=== PATIENT | female | born 1985 | race Caucasian/White ===

== ENCOUNTER 2017-04-28 08:29 | Emergency (ER) | payer OTHER ==
--- NOTE | 2017-04-28 09:36 | PD ---
HPI Chief Complaint Contractions Date Seen: Apr 28, 2017 Travel History International Travel<30 Days: No Contact w/Intl Traveler<30Days: No Known Affected Area: No History of Present Illness HPI Patient is 31-year-old white female at 39 weeks who presents planning of contractions that are uncomfortable and getting more uncomfortable but they are tolerable, denies bleeding or leakage of fluid. Heart rate is reactive and contractions are noted on the monitor every 3-4 minutes patient states that she is this all started about 1:00 in the morning and has increased since then. Patient sees Dr. Jeff for care Para: 0 : 1 History Social History Alcohol Use: No Tobacco Use: No Substance Abuse: No Review of Systems General / Constitutional: No: Fever, Weight Gain, Chills, Other Eyes: No: Diploplia, Blurred Vision, Visual changes, Pain, Photophobia HENT: No: Headaches, Vertigo, Lightheadedness Cardiovascular: No: Irregular Rhythm, Chest Pain or Discomfort, Palpitations, Tachycardia, Syncope, Varicosities, Edema, Cyanosis Respiratory: No: Cough, Short of Breath, Other Gastrointestinal: Abdominal Pain, No: Nausea, Vomiting, Diarrhea Genitourinary: No: Decreased Urinary Output, Oliguria Musculoskeletal: No: Limited ROM, Weakness, Cramping, Edema, Pain Skin: No Rash, No Itching, No Dryness, No Lumps, No Change in Pigmentation, No Change in Nails, No Alopecia, No Lesions Neurologic: No: Weakness, Dizziness, Syncope, Focal Abnormalities, Coordination Problem, Headache, Slurred Speech, Seizures Psychiatric: No: Depression, Suicidal Ideations, Homicidal Ideation Endocrine: No: Heat Intolerance, Cold Intolerance, Polydipsia, Polyuria, Other Physical Exam Narrative GENERAL: Well-nourished, well-developed patient. SKIN: Warm and dry. HEAD: Normocephalic and atraumatic. EYES: No scleral icterus. No injection or drainage. ENT: No nasal drainage noted. Mucous membranes pink. Airway patent. NECK: Supple, trachea midline. No JVD. CARDIOVASCULAR: Regular rate and rhythm without murmurs, gallops, or rubs. RESPIRATORY: Breath sounds equal bilaterally. No accessory muscle use. BREASTS: Bilateral exam showed no masses , no retractions, no nipple discharge. ABDOMEN/GI: Abdomen soft, non-tender, bowel sounds present, no rebound, no guarding Gravid to [39-] weeks size Fundal Height: [38-] GENITOURINARY: External Genitalia: intact and normal in appearance BUS glands: [-] Cervix: [-] Dilatation: [0-] Effacement: [-50] Station: [-3] Presentation: [vtx-] Membranes: [intact ] Uterine Contractions: [q 4 min-] FHT's: Category: [1-] Baseline: [-144] Reactive: [yes-] Variability: [-mod] Decels: [0-] EXTREMITIES: No cyanosis or edema. BACK: Nontender without obvious deformity. No CVA tenderness. NEUROLOGICAL: Awake and alert. Motor and sensory grossly within normal limits. Five out of 5 muscle strength in all muscle groups. Normal speech. MDM Interpretation(s) Patient 31-year-old white female at 39 weeks who presents with contractions but is not dilated at this time, heart rate tracing is reactive and she is giovanna with her not very uncomfortable just somewhat uncomfortable. Membranes are intact heart rate tracing is reactive Plan Plan to discharge home for her to return in contraction strength is increased or for membranes rupture which is bleeding. Otherwise she is followed with her OB provider this week. Diagnosis Diagnosis: Primary Impression: False labor after 37 weeks of gestation without delivery Disposition: 01 DISCHARGE HOME Condition: Stable Maulik Edward II, MD Apr 28, 2017 09:36
[2017-04-28] MEDS ORDERED: PREN29TA PO (23:44)
== END 2017-04-28 09:44 | disposition home or self-care (01) ==
LOC: HOBED 08:29
DX: O47.1 False labor at or after 37 completed weeks of gestation (principal); Z3A.39 39 weeks gestation of pregnancy
CPT/HCPCS: 99282

== ENCOUNTER 2017-04-28 22:53 | Inpatient (IN) | payer OTHER ==
[~2017-04-28] VITALS: Ht 167.6 cm; Wt 73.0 kg
[2017-04-28] MEDS ORDERED: LIDOCAINE HCL 1% 50 ML VIAL I-DERMAL PRN (23:30)
[2017-04-28] MEDS ORDERED: OXYTOCIN 30 UNITS-500ML PREMIX 500 ML IV ONE (23:30)
[2017-04-28] MEDS ORDERED: ONDANSETRON HCL 4 MG/2 ML VIAL IV PRN (23:30)
[2017-04-28] MEDS ORDERED: CITRIC ACID-SODIUM CITRATE LIQ 30 ML UDC PO SCH (23:30)
[2017-04-28] MEDS ORDERED: MINERAL OIL 10 ML VIAL TOPICAL PRN (23:30)
[2017-04-28] MEDS ORDERED: LIDOCAINE HCL 1% 50 ML VIAL INFIL PRN (23:30)
[2017-04-28] MEDS ORDERED: LACTATED RINGER'S 1000 ML INJ 1,000 ML IV PRN (23:30)
[2017-04-28] MEDS ORDERED: SODIUM CHLORID 0.9% 500 ML INJ 500 ML IV PRN (23:30)
--- NOTE | 2017-04-28 23:30 | PD ---
HPI Chief Complaint Contractions with rupture membranes Date Seen: Apr 28, 2017 Time Seen: 23:26 Travel History International Travel<30 Days: No Contact w/Intl Traveler<30Days: No Known Affected Area: No History of Present Illness HPI 31-year-old female at 39 weeks and 2 days complains of contractions. Patient was here early this morning with contractions and her cervix was closed and she was sent home. Patient notes sudden gush of fluid at 10:30 this evening accompanied by a yellowish green amniotic fluid per vagina. Since rupture membranes patient has had an increase in the intensity of the contractions which are now occurring every 4-5 minutes. She's had uncomplicated antepartum course and is group B strep negative Para: 0 : 1 History Past Medical History Medical History: Denies Significant Hx Past Surgical History Surgical History: No Previous Surgery Family History Family History: Negative Social History Alcohol Use: No Tobacco Use: No Substance Abuse: No Review of Systems Except as stated in HPI: all other systems reviewed are Neg Physical Exam Narrative GENERAL: Well-nourished, well-developed patient. SKIN: Warm and dry. HEAD: Normocephalic and atraumatic. EYES: No scleral icterus. No injection or drainage. ENT: No nasal drainage noted. Mucous membranes pink. Airway patent. NECK: Supple, trachea midline. No JVD. CARDIOVASCULAR: Regular rate and rhythm without murmurs, gallops, or rubs. RESPIRATORY: Breath sounds equal bilaterally. No accessory muscle use. ABDOMEN/GI: Abdomen soft, non-tender, bowel sounds present, no rebound, no guarding Gravid to [-39] weeks size Fundal Height: [-] GENITOURINARY: External Genitalia: intact and normal in appearance BUS glands: [-Normal] Cervix: [-Mid position] Dilatation: [Closed-] Effacement: [-50] Station: [--3] Presentation: [-Vertex] Membranes: [ruptured] light meconium Uterine Contractions: [-Every 5 minutes] FHT's: Category: [1-] Baseline: [150-] Reactive: [-Moderate] Variability: [-Moderate] Decels: [Absent-] EXTREMITIES: No cyanosis or edema. BACK: Nontender without obvious deformity. No CVA tenderness. NEUROLOGICAL: Awake and alert. Motor and sensory grossly within normal limits. Five out of 5 muscle strength in all muscle groups. Normal speech. Data Data Vital Signs Reviewed: Yes MDM Plan 31-year-old at 39 weeks 2 days with spontaneous rupture membranes and consistent contractions Patient will be admitted to the labor floor, she desires an epidural for pain relief Group B strep is negative Light meconium is noted in the amniotic fluid Diagnosis Diagnosis: Primary Impression: Meconium stained amniotic fluid, delivered, current hospitalization Additional Impressions: Ruptured, membranes, premature Rupture of membranes with meconium present Spontaneous onset of labor after 37 but before 39 completed weeks gestation with delivery by planned section, delivered with mention of complication 39 weeks gestation of Maria Isabel Christianson MD Apr 28, 2017 23:30
[2017-04-28] MEDS ORDERED: PREN29TA PO (23:44)
[2017-04-28 23:49] VITALS: BP 125/63; PULSE 82
[2017-04-28] MEDS ORDERED: SODIUM CHLOR 0.9% 1000 ML INJ 1,000 ML IV PRN (23:50)
[2017-04-28] MEDS: LACTATED RINGER'S 1000 ML INJ 1,000 ML IV SCH (23:58)
[2017-04-29] VITALS (105 sets, daily range): BP systolic 86–153; BP diastolic 43–109; PULSE 68–126; RESP 16–18; TEMP 97.8–99.2; O2SAT 99–100
[2017-04-29 00:24] LABS: AUTOMATED NEUTROPHIL # 8.2 TH/MM3 (1.8-7.7); BASOPHIL % 0.2 % (0.0-2.0); EOSINOPHIL % 0.3 % (0.0-4.0); HEMATOCRIT 38.2 % (35.0-46.0); HEMO FLAGS DIFF FINAL; LYMPH % 25.6 % (9.0-44.0); LYMPHOCYTE # 3.1 TH/MM3 (1.0-4.8); MEAN CELL VOLUME 92.9 FL (80.0-100.0); MEAN CORPUSCULAR HEMOGLOBIN 32.5 PG (27.0-34.0); MEAN CORPUSCULAR HGB CONC 34.9 % (32.0-36.0); MONO % 6.7 % (0.0-8.0); NEUT % 67.2 % (16.0-70.0); PLATELET COUNT 196 TH/MM3 (150-450); RED BLOOD COUNT 4.11 MIL/MM3 (4.00-5.30); RED CELL DISTRIBUTION WIDTH 13.2 % (11.6-17.2); WHITE BLOOD COUNT 12.2 TH/MM3 (4.0-11.0)
[2017-04-29 00:30] LABS: BLOOD, URINE MOD (NEG); COMMENT (UR) CULT NOT INDICATED; CULTURE IF INDICATED CULT NOT INDICATED; GLUCOSE,URINE NEG (NEG); KETONE, URINE 10 mg/dL (NEG); MUCUS URINE FEW /lpf (OCC); NITRITE,URINE NEG (NEG); SQUAMOUS EPITHELIAL CELL URINE 1 /hpf (0-5); URINE COLOR YELLOW (YELLW/STRAW)
[2017-04-29] MEDS: LACTATED RINGER'S 1000 ML INJ 1,000 ML IV SCH ×3 (01:23→15:07)
[2017-04-29] MEDS ORDERED: fentaNYL 2MCG-BUPIV 0.125% INJ 100 ML ONE (03:09)
[2017-04-29] MEDS ORDERED: NO SYSTEM NARCOTICS PRN (03:45)
[2017-04-29] MEDS ORDERED: fentaNYL 2MCG-BUPIV 0.125% 100 ML EPIDURAL SCH (03:45)
[2017-04-29] MEDS ORDERED: DO NOT ADMINISTER ANTICOAGULANTS PRN (03:45)
[2017-04-29] MEDS ORDERED: ePHEDrine/NS 25 MG/5 ML SYR IV PRN (03:45)
[2017-04-29] MEDS ORDERED: OXYTOCIN 30 UNITS-500ML PREMIX 500 ML ONE (08:14)
[2017-04-29] MEDS ORDERED: ACETAMINOPHEN 500 MG CPLT PO ONE (15:00)
[2017-04-29] MEDS ORDERED: DIPHTH/TETANUS/ACEL PERTUSSIS (BOOSTER) 0.5 ML VIAL/PFS IM ONE (16:00)
[2017-04-29] MEDS ORDERED: MEASLES, MUMPS, RUBELLA VACCINE 0.5 ML VIAL SQ ONE (16:00)
--- NOTE | 2017-04-29 20:58 | PD.OB.DELI ---
Delivery Date: Apr 29, 2017 Anesthesia: Epidural Episiotomy: Midline Vaginal Delivery: Normal Presentation: Occiput anterior Nuchal Cord: None Delayed cord clamping (45 sec): No : Female, Single One Minute : 8 Five Minute : 9 Weight: 7-14 Placenta: Spontaneous delivery, Intact, 3 vessel cord Laceration: Episiotomy, 2 deg Repair: Chromic interrupted, Chromic running Rubi Borden MD Apr 29, 2017 20:58
[2017-04-29] MEDS ORDERED: SODIUM CHLORIDE 0.9% FLUSH 10 ML FLUSH IV FLUSH PRN (21:00)
[2017-04-29] MEDS ORDERED: ZOLPIDEM TARTRATE 5 MG TAB PO PRN (21:00)
[2017-04-29] MEDS ORDERED: BENZOCAINE 20% TOPICAL SPRAY 60 ML CAN TOPICAL PRN (21:00)
[2017-04-29] MEDS ORDERED: DOCUSATE SODIUM 50 MG/SENNA 8.6 MG TAB PO PRN (21:00)
[2017-04-29] MEDS ORDERED: oxyCODONE/ACETAMINOPHEN 5 MG/325 MG TAB PO PRN ×2 (21:00)
[2017-04-29] MEDS ORDERED: ONDANSETRON ODT 4 MG TAB PO PRN (21:00)
[2017-04-29] MEDS ORDERED: WITCH HAZEL 50%/GLYCERIN 12.5% 40 PAD JAR TOPICAL PRN (21:00)
[2017-04-29] MEDS ORDERED: ALUMINUM/MAGNESIUM/SIMETH 30 ML CUP PO PRN (21:00)
[2017-04-29] MEDS ORDERED: SODIUM CHLORIDE 0.9% FLUSH 10 ML FLUSH IV FLUSH SCH (21:00)
[2017-04-30] MEDS: IBUPROFEN 600 MG TAB PO PRN ×3 (05:53→17:30)
[2017-04-30 08:35] VITALS: BP 107/63; PULSE 74; RESP 16; TEMP 97.8
[2017-04-30] MEDS: ACETAMINOPHEN 325 MG TAB PO PRN ×2 (11:49→17:29)
--- NOTE | 2017-04-30 12:20 | HHI.OB ---
Subjective Post Day: 1 Remarks Pt doing well, good pain control, going well Objective Vitals/I&O Vital Signs Date Time Temp Pulse Resp B/P Pulse Ox O2 Delivery O2 Flow Rate FiO2 04/30/17 08:35 74 107/63 04/30/17 08:35 97.8 16 04/29/17 22:56 18 04/29/17 22:46 91 99/69 04/29/17 22:31 110 112/71 04/29/17 22:15 102 112/69 04/29/17 22:05 18 04/29/17 22:00 94 103/66 04/29/17 21:45 95 110/73 04/29/17 21:35 18 04/29/17 21:31 96 120/70 04/29/17 21:15 102 118/81 04/29/17 21:05 99.2 18 04/29/17 21:02 97 117/70 04/29/17 19:20 98.9 18 04/29/17 19:15 88 116/71 04/29/17 19:00 116 113/80 04/29/17 18:00 129/109 04/29/17 18:00 98.1 04/29/17 18:00 16 04/29/17 17:45 114 110/58 04/29/17 15:07 18 Objective Remarks GENERAL: Well-nourished, well-developed patient. CARDIOVASCULAR: Regular rate and rhythm without murmurs, gallops, or rubs. RESPIRATORY: Breath sounds equal bilaterally. No accessory muscle use. ABDOMEN/GI: Abdomen soft, non-tender. Fundus: Firm, non-tender at umbilicus. GENITOURINARY: Light to moderate bleeding. EXTREMITIES: No cyanosis or edema, non-tender, without signs of DVT. Medications and IVs Current Medications Medications (Trade) Dose Ordered Sig/Lexie Route Start Time Stop Time Status Last Admin Lactated Ringer's 1,000 ml @ 125 mls/hr Q8H IV 04/28/17 23:30 04/29/17 15:07 Lactated Ringer's 1,000 ml @ 3,000 mls/hr Q20M PRN IV 04/28/17 23:30 Sodium Chloride 500 ml @ 1,000 mls/hr ONCE PRN IV 04/28/17 23:30 (NS 1000 ml Inj) 1,000 ml @ 100 mls/hr Q10H PRN IV 04/28/17 23:50 (Zofran Inj) 4 mg Q6H PRN IV 04/28/17 23:30 04/29/17 08:25 (fentaNYL INJ) 50 mcg Q1H PRN IV PUSH 04/28/17 23:30 (fentaNYL INJ) 100 mcg Q1H PRN IV PUSH 04/28/17 23:30 04/29/17 01:24 Mineral Oil 10 ml 10 ml UNSCH PRN TOPICAL 04/28/17 23:30 (fentaNYL 2MCG-BUPIV 0.125% INJ) 100 ml @ 0 mls/hr TITRATE EPIDURAL 04/29/17 03:45 04/29/17 15:07 (NS Flush) 2 ml BID IV FLUSH 04/29/17 21:00 (NS Flush) 2 ml UNSCH PRN IV FLUSH 04/29/17 21:00 (Tylenol) 650 mg Q4H PRN PO 04/29/17 21:00 04/30/17 11:49 (Motrin) 600 mg Q6H PRN PO 04/29/17 21:00 04/30/17 05:53 (Percocet 5-325 Mg) 1 tab Q4H PRN PO 04/29/17 21:00 (Percocet 5-325 Mg) 2 tab Q4H PRN PO 04/29/17 21:00 (Americaine 20% Top Spr) 1 spray Q4H PRN TOPICAL 04/29/17 21:00 04/30/17 04:06 (Tucks Pads) 1 applic QID PRN TOPICAL 04/29/17 21:00 04/30/17 04:06 (Shanta-Colace) 2 tab Q12H PRN PO 04/29/17 21:00 (Ambien) 5 mg HS PRN PO 04/29/17 21:00 (Mag-Al Plus Susp Liq) 15 ml Q8H PRN PO 04/29/17 21:00 (Zofran Odt) 4 mg Q6H PRN PO 04/29/17 21:00 Assessment/Plan Problem List: (1) 39 weeks gestation of (2) Rupture of membranes with meconium present Assessment and Plan PPD # 1 s/p doing well Discharge Planning plan for dc tomorrow Rubi Borden MD Apr 30, 2017 12:20
[2017-04-30 20:01] VITALS: BP 103/60; PULSE 75; RESP 18; TEMP 98
[2017-05-01] MEDS: ACETAMINOPHEN 325 MG TAB PO PRN ×3 (02:30→15:06)
[2017-05-01] MEDS: IBUPROFEN 600 MG TAB PO PRN ×3 (02:30→15:06)
[2017-05-01 08:16] VITALS: BP 104/64; PULSE 82; RESP 18; TEMP 98
--- NOTE | 2017-05-01 13:12 | HHI.DCPOC ---
Discharge Care Plan Diagnosis: (1) Rupture of membranes with meconium present (2) 39 weeks gestation of Your Health Problems Are: Vaginal delivery Report Symptoms to Your Doctor -Temperature above 100.5 degrees -Redness, of incision or excessive or foul smelling drainage -Unusual pain or calf pain -Increased vaginal bleeding -Painful or difficulty urinating -Feelings of extreme sadness or anxiety after 2 weeks Goals to Promote Your Health * To prevent worsening of your condition and complications * To maintain your health at the optimal level Directions to Meet Your Goals Take your medications as prescribed Follow your dietary instruction Follow activity as directed Ensure plenty of rest for recovery Drink fluids for hydration Keep your appointments as scheduled Take your immunizations and boosters as scheduled If your symptoms worsen call your PCP, if no PCP go to Urgent Care Center or Emergency Room Smoking is Dangerous to Your Health. Avoid second hand smoke Call the 24-hour crisis hotline for domestic abuse at Rubi Borden MD May 01, 2017 13:11
--- NOTE | 2017-05-01 13:13 | HHI.DS ---
Admission Date Apr 28, 2017 at 23:30 Discharge Date: May 01, 2017 Admitting Diagnosis labor at term Diagnosis: Delivery Date: Apr 29, 2017 Vaginal Delivery: Normal Infant: Female, Single Brief History 31-year-old female at 39 weeks and 2 days complains of contractions. Patient was here early this morning with contractions and her cervix was closed and she was sent home. Patient notes sudden gush of fluid at 10:30 this evening accompanied by a yellowish green amniotic fluid per vagina. Since rupture membranes patient has had an increase in the intensity of the contractions which are now occurring every 4-5 minutes. She's had uncomplicated antepartum course and is group B strep negative Hospital Course labor at term with viable healthy female Pt Condition on Discharge: Good Discharge Disposition: Discharge Home Discharge Instructions Diet Instructions: As Tolerated, No Restrictions Activities You Can Perform: Pelvic Rest Activities to Avoid: Sexual Activity Rubi Borden MD May 01, 2017 13:13
== END 2017-05-01 18:27 | disposition home or self-care (01) | DRG 775 ==
LOC: HOBED 22:53 → H2EA 23:30 → H1EA 04-29 23:04
PROVIDERS: ADMIT Obstetrics & Gynecology; ATTEND Obstetrics & Gynecology
PROC: 10E0XZZ Delivery of Products of Conception, External Approach (ICD-10-PCS; principal; 2017-04-29)
PROC: 0KQM0ZZ Repair Perineum Muscle, Open Approach (ICD-10-PCS; 2017-04-29)
PROC: 0W8NXZZ Division of Female Perineum, External Approach (ICD-10-PCS; 2017-04-29)
PROC: 3E0S3CZ (ICD-10-PCS; 2017-04-29)
PROC: 00HU33Z Insertion of Infusion Device into Spinal Canal, Percutaneous Approach (ICD-10-PCS; 2017-04-29)
DX: O42.02 Full-term premature rupture of membranes, onset of labor within 24 hours of rupture (principal); O77.0 Labor and delivery complicated by meconium in amniotic fluid; O70.1 Second degree perineal laceration during delivery; Z37.0 Single live birth; Z3A.39 39 weeks gestation of pregnancy
CPT/HCPCS: 81001; 84112; 85025; 86900; 86901; 90715; 99282; 99285; J2405; J2590; J3010; J7120

== ENCOUNTER 2018-12-25 05:22 | Inpatient (IN) ==
[2018-12-25] MEDS ORDERED: ceFAZolin 2 GM Premix Inj 2 GM/50 ML PIGGYBACK IV.SIG PRN (06:01)
[2018-12-25] MEDS ORDERED: Citric Acid/Sodium Citrate Liq 30 ML UDC PO SCH (06:15)
[2018-12-25 06:18] LABS: Baso # (Auto) 0.1 th/mm3 (0.0-0.2); Baso % (Auto) 0.6 % (0.0-2.0); Eos # (Auto) 0.1 th/mm3 (0.0-0.4); Eos % (Auto) 0.6 % (0.0-4.0); Hematocrit 35.4 % (35.0-46.0); Hemoglobin 12.2 gm/dL (11.6-15.3); Lymph # (Auto) 3.6 th/mm3 (1.0-4.8); Lymph % (Auto) 28.9 % (9.0-44.0); Mean Corpuscular HGB Conc 34.3 % (32.0-36.0); Mean Corpuscular Hemoglobin 31.9 pg (27.0-34.0); Mean Corpuscular Volume 92.8 fL (80.0-100.0); Mean Platelet Volume 8.6 fL (7.0-11.0); Mono # (Auto) 0.9 th/mm3 (0.0-0.9); Mono % (Auto) 6.9 % (0.0-8.0); Neut # (Auto) 7.8 th/mm3 (1.8-7.7); Platelet Count 254 th/mm3 (150-450); Red Blood Count 3.81 mil/mm3 (4.00-5.30); Red Cell Distribution Width 13.3 % (11.6-17.2); White Blood Count 12.4 th/mm3 (4.0-11.0)
[2018-12-25 06:51] LABS: Bacteria,Urine Few /hpf; Bilirubin,Urine Negative (Negative); Clarity,Urine Hazy (Clear); Color,Urine Yellow (Yellw/Straw); Glucose,Urine (UA) Negative (Negative); Hyaline Casts,Urine 1 /lpf (0-3); Leukocyte Esterase,Urine Trace (Negative); Mucus,Urine Few /lpf (Occasional); Nitrite,Urine Negative (Negative); Specific Gravity,Urine 1.018 (1.002-1.035); Squamous Epithelial Cell,Urine 8 /hpf (0-5)
[2018-12-25 07:03] LABS: Platelet Estimate Normal (Normal); Platelet Morphology Normal (Normal); RBC Morphology Normal (Normal)
[2018-12-25] MEDS ORDERED: Morphine Sulfate PF Inj 5 MG/10 ML Ampul ONE (07:07)
[2018-12-25] MEDS ORDERED: Phenylephrine/NS 1000 MCG/10ML Syringe IV.PUSH ONE (07:15)
[2018-12-25] MEDS ORDERED: Oxytocin 30 Units/500ml Premix 30 UNITS/500 ML BAG IV.SIG ONE (08:00)
[2018-12-25] MEDS ORDERED: Oxytocin 30 Units/500ml Premix 30 UNITS/500 ML BAG ONE (08:52)
--- NOTE | 2018-12-25 08:52 | MP ---
cc: Rubi Borden MD DATE OF OPERATION: 12/25/2018 PREOPERATIVE DIAGNOSES: Single intrauterine at 39 weeks gestation with breech presentation. POSTOPERATIVE DIAGNOSES: Single intrauterine at 39 weeks gestation with breech presentation. PROCEDURE PERFORMED: Primary low transverse section. SURGEON: Michi Venegas MD. ANESTHESIA: Spinal, Dr. Linda. FINDINGS AT SURGERY: A viable male weighing 7 pounds 14 ounces with Apgars 8 and 9. Normal-appearing tubes and ovaries bilaterally. BLOOD LOSS: 800 mL. COMPLICATIONS: None. PROCEDURE IN DETAIL: After proper consents were obtained, blood had been typed and screened, patient was taken to the operating room where spinal anesthetic was placed. She was then placed in the dorsal position, sterilely prepped and draped, and a Fuchs catheter was placed. At this time, she was sterilely prepped and draped. We went ahead and performed a Pfannenstiel skin incision using a sharp knife. This was carried down to the fascia using the Bovie cautery. The fascia was nicked in the midline and extended superolaterally on each side. Blunt dissection of the muscles off of the fascia. Peritoneum was identified, grasped with 2 hemostats, and entered sharply with the Metzenbaum scissors. This was extended superiorly and inferiorly, paying close attention to the bladder. The bladder blade was placed. Bladder flap was developed. Bladder blade was replaced. I made a transverse incision in the lower uterine segment. Rupture of membranes revealed clear fluid. We extended the incision using finger fracture technique. We then delivered the breech in a benjy breech position. I delivered the top leg, bending at the knee, and then bringing it out; and then I was able to maneuver and deliver the bottom leg. I then was able to rotate the body to the dorsal side up to the level of the mid scapular region, grasped the body with moist towel, tucked the right hand across the face and chest and delivered it, followed by the left and across the face and chest, and then the vertex delivered easily. Bulb suction to the oropharynx and the nares. Cord was clamped x 2, cut in between, and the handed to the team in attendance. A viable male, 7 pounds 14 ounces with Apgars of 8 and 9. At this time, a cord blood collection was performed for cord blood banking. I then was able to obtain cord blood for the hospital and then remove the placenta. We then exteriorized the uterus, wiped clean of clots and debris. Closed the uterine incision using a 1-0 chromic starting at each apex meeting in the midline in a running interlocking fashion with excellent hemostasis noted. I then irrigated abdominopelvic cavity. We placed the uterus back into the cavity. Hemostasis was assured. We went ahead and reapproximated the muscles using a #1 chromic suture x 1. We then closed the fascia using #0 Vicryl starting at each apex and meeting in the midline in a running fashion. Irrigation was performed in the subQ. Hemostasis achieved using Bovie cautery. I closed the space using interrupted sutures of 3-0 Vicryl. I then closed the skin using the stapler. Counts were correct. The patient was stable to the recovery room. MD CHARLENE Ash/rs , 08:12 AM , 08:22 AM
[2018-12-25] MEDS ORDERED: Oxytocin 30 Units/500ml Premix 30 UNITS/500 ML BAG IV.SIG PRN (12:21)
[2018-12-25] MEDS: ceFAZolin Inj 1 GM in Sodium Chlor 0.9% Inj 100 ML IV.SIG SCH ×2 (15:39→23:05)
[2018-12-25] MEDS: Ketorolac Inj 30 MG/ML (IVP) Vial IV.PUSH PRN (18:22)
[2018-12-26] MEDS: Ketorolac Inj 30 MG/ML (IVP) Vial IV.PUSH PRN (05:13)
[2018-12-26 08:14] LABS: Baso % (Auto) 0.3 % (0.0-2.0); Eos % (Auto) 0.2 % (0.0-4.0); Hematocrit 33.3 % (35.0-46.0); Hemoglobin 12.2 gm/dL (11.6-15.3); Lymph # (Auto) 1.7 th/mm3 (1.0-4.8); Lymph % (Auto) 11.5 % (9.0-44.0); Mean Corpuscular Hemoglobin 34.6 pg (27.0-34.0); Mean Corpuscular Volume 94.3 fL (80.0-100.0); Mean Platelet Volume 7.8 fL (7.0-11.0); Mono # (Auto) 0.9 th/mm3 (0.0-0.9); Neut # (Auto) 12.5 th/mm3 (1.8-7.7); Platelet Count 208 th/mm3 (150-450); Red Blood Count 3.54 mil/mm3 (4.00-5.30); Red Cell Distribution Width 13.6 % (11.6-17.2); White Blood Count 15.3 th/mm3 (4.0-11.0)
[2018-12-26 08:15] LABS: Mean Corpuscular HGB Conc 36.7 % (32.0-36.0)
--- NOTE | 2018-12-26 09:47 | P.PNOB ---
Subjective Post day: 1 Interval history: doing well Objective Vital Signs/I&O: Vital Signs 12/25/18 10:00 12/25/18 15:00 12/25/18 20:00 Temperature 97.5 F L 98.3 F 97.9 F Pulse Rate 79 80 68 Respiratory Rate 18 18 18 Blood Pressure 109/57 L 108/58 L 92/62 L 12/26/18 00:00 12/26/18 05:00 Temperature 98.6 F 98.1 F Pulse Rate 68 76 Respiratory Rate 18 18 Blood Pressure 92/53 L 95/58 L Intake & Output 12/25/18 12/26/18 12/26/18 18:59 06:59 18:59 Intake Total 200 / 200 Balance 200 / 200 Intake: IV 200 / 200 Ofirmev Inj 1,000 mg In 100 ml 100 / 100 @ 400 mls/hr IV.SIG Q8H [facility] Rx# :[id number] Ancef Inj 1 GM In NS Inj 100 ML 100 / 100 @ 200 mls/hr IV.SIG Q8H [facility] Rx #:[id number] Result Diagrams: 12/26/18 08:01 Objective Remarks: GENERAL: Well-nourished, well-developed patient. ABDOMEN/GI: Abdomen soft, non-tender. Fundus: Firm, non-tender at umbilicus. GENITOURINARY: Light to moderate bleeding. EXTREMITIES: No cyanosis or edema, non-tender, without signs of DVT. Medications and IVs: Active Medications Citric Acid/Sodium Citrate (Sodium Citrate/Citric Acid Liq) 30 ml PO ASSISTANT PROFESSOR OF ENGLISH [facility] Stop: 12/29/18 06:14 Diphtheria/Pertussis/Tetanus Vacc (Boostrix Vaccine Inj) 0.5 ml IM .ONCE ONE Stop: 12/26/18 16:01 Cefazolin Sodium/Dextrose (Ancef 2 Gm Premix Inj) 2 gm in 50 mls @ 100 mls/hr IV.SIG ASSISTANT PROFESSOR OF ENGLISH PRN PRN Reason: ASSISTANT PROFESSOR OF ENGLISH TO OR Stop: 12/29/18 06:00 Oxytocin (Pitocin 30 Units/Ns 500 Ml Premix) 30 units in 500 mls @ 100 mls/hr IV.SIG UNSCH PRN PRN Reason: Heavy bleeding Last Infusion: 12/25/18 15:39 Dose: 0 mls/hr Ketorolac Tromethamine (Toradol Inj) 30 mg IV.PUSH Q8H PRN PRN Reason: PAIN SCALE 1 TO 10 Stop: 12/30/18 09:33 Last Admin: 12/26/18 05:13 Dose: 30 mg Measles/Mumps/Rubella Vaccine Live (M-M-R Ii Vaccine Inj) 0.5 ml SQ .ONCE ONE Stop: 12/26/18 16:01 Ondansetron HCl (Zofran Inj) 4 mg IV.PUSH Q6H PRN PRN Reason: NAUSEA OR VOMITING Last Admin: 12/25/18 18:22 Dose: 4 mg Oxycodone/Acetaminophen (Percocet 5/325 Mg) 1 tab PO Q4H PRN PRN Reason: PAIN SCALE 3 TO 5 Last Admin: 12/26/18 05:14 Dose: 1 tab Oxycodone/Acetaminophen (Percocet 5/325 Mg) 2 tab PO Q4H PRN PRN Reason: PAIN SCALE 6 TO 10 Sodium Chloride (Ns Flush) 2 ml IV.FLUSH BID JUANCARLOS Last Admin: 12/25/18 23:05 Dose: Not Given Sodium Chloride (Ns Flush) 2 ml IV.FLUSH UNSCH PRN PRN Reason: FLUSH AFTER USING IV ACCESS Last Admin: 12/26/18 05:12 Dose: 2 ml Assessment and Plan - Diagnosis (1) delivery delivered Code(s): O82 - Encounter for delivery without indication Status: Acute (2) Breech presentation Code(s): O32.1XX0 - Maternal care for breech presentation, not applicable or unspecified Status: Acute - Plan dc in am
[2018-12-26] MEDS ORDERED: Simethicone 80 MG Chew Tablet PO PRN (15:40)
[2018-12-26] MEDS ORDERED: Measles/Mumps/Rubella Vaccine Inj 0.5 ML Vial SQ ONE (16:00)
[2018-12-26] MEDS ORDERED: Diphtheria/Tetanus/Pertussis Vaccine Inj 0.5 ML Syringe IM ONE (16:00)
[2018-12-26] MEDS: Ibuprofen 600 MG Tablet PO PRN ×2 (16:16→22:12)
[2018-12-27] MEDS: Ibuprofen 600 MG Tablet PO PRN ×2 (03:52→10:26)
--- NOTE | 2018-12-27 13:09 | P.PNOB ---
Subjective Post day: 2 Interval history: doing well PPday #2 Objective Vital Signs/I&O: Vital Signs 12/26/18 20:00 12/26/18 20:30 12/27/18 00:00 Temperature 98.0 F Pulse Rate 67 Respiratory Rate 18 18 18 Blood Pressure 100/59 L 12/27/18 02:15 Temperature Pulse Rate Respiratory Rate 18 Blood Pressure Result Diagrams: 12/26/18 08:01 Objective Remarks: GENERAL: Well-nourished, well-developed patient. ABDOMEN/GI: Abdomen soft, non-tender. Fundus: Firm, non-tender at umbilicus. GENITOURINARY: Light to moderate bleeding. EXTREMITIES: No cyanosis or edema, non-tender, without signs of DVT. Medications and IVs: Active Medications Citric Acid/Sodium Citrate (Sodium Citrate/Citric Acid Liq) 30 ml PO PRESCHOOL ADVISER JUANCARLOS Stop: 12/29/18 06:14 Cefazolin Sodium/Dextrose (Ancef 2 Gm Premix Inj) 2 gm in 50 mls @ 100 mls/hr IV.SIG PRESCHOOL ADVISER PRN PRN Reason: PRESCHOOL ADVISER TO OR Stop: 12/29/18 06:00 Oxytocin (Pitocin 30 Units/Ns 500 Ml Premix) 30 units in 500 mls @ 100 mls/hr IV.SIG UNSCH PRN PRN Reason: Heavy bleeding Last Infusion: 12/25/18 15:39 Dose: 0 mls/hr Ibuprofen (Motrin) 600 mg PO Q6HR PRN PRN Reason: ABDOMINAL CRAMPING Last Admin: 12/27/18 10:26 Dose: 600 mg Ondansetron HCl (Zofran Inj) 4 mg IV.PUSH Q6H PRN PRN Reason: NAUSEA OR VOMITING Last Admin: 12/25/18 18:22 Dose: 4 mg Oxycodone/Acetaminophen (Percocet 5/325 Mg) 1 tab PO Q4H PRN PRN Reason: PAIN SCALE 3 TO 5 Last Admin: 12/27/18 01:53 Dose: 1 tab Oxycodone/Acetaminophen (Percocet 5/325 Mg) 2 tab PO Q4H PRN PRN Reason: PAIN SCALE 6 TO 10 Last Admin: 12/26/18 14:09 Dose: 2 tab Simethicone (Mylicon Chew) 80 mg PO Q8H PRN PRN Reason: BLOATING AND/OR GAS Last Admin: 12/26/18 16:15 Dose: 80 mg Sodium Chloride (Ns Flush) 2 ml IV.FLUSH BID JUANCARLOS Last Admin: 12/26/18 20:15 Dose: Not Given Sodium Chloride (Ns Flush) 2 ml IV.FLUSH UNSCH PRN PRN Reason: FLUSH AFTER USING IV ACCESS Last Admin: 12/26/18 05:12 Dose: 2 ml Assessment and Plan - Diagnosis (1) delivery delivered Code(s): O82 - Encounter for delivery without indication Status: Acute (2) Breech presentation Code(s): O32.1XX0 - Maternal care for breech presentation, not applicable or unspecified Status: Acute - Plan dc in am
--- NOTE | 2018-12-27 13:15 | P.DS ---
Date of admission: 12/25/18 05:22 Primary care physician: UNKNOWN Attending physician on discharge: Rubi Jeff Anticipated date of discharge: 12/27/18 Brief History from admission: patient admitted for CS breech DS: Diagnosis - Discharge Diagnosis (1) delivery delivered Status: Acute (2) Breech presentation Status: Acute (3) delivery delivered Status: Acute DS: Medications - Discharge Medications Prescriptions: oxycodone-acetaminophen 2 tab PO Q4H PRN 3 Days #24 tab PRN Reason: Pain Scale 6 To 10 DS: Summary Hospital Course: Patient came for CS for breech - Time Spent with Patient Total time spent providing and/or coordinating discharge services: Less than 30 minutes Exam Vital signs: Vital Signs 12/26/18 20:00 12/26/18 20:30 12/27/18 00:00 Temperature 98.0 F Pulse Rate 67 Respiratory Rate 18 18 18 Blood Pressure 100/59 L 12/27/18 02:15 Temperature Pulse Rate Respiratory Rate 18 Blood Pressure - Constitutional no acute distress Results Procedures completed during hospitalization: section Discharge Plan - Discharge Disposition Patient Disposition: 01 Discharge Home - Discharge Condition Condition: Good - Discharge Order Discharge Orders: Discharge Order (Routine); Ordered 12/27/18 Ordered By: Geronimo Liu - Physicians Team Primary Care Provider: UNKNOWN, Attending Provider: Rubi Jeff - Rxs /Orders / Referrals /Forms Prescriptions: New oxycodone-acetaminophen 5-325 mg Tablet 2 tab PO Q4H PRN (Reason: Pain Scale 6 To 10) 3 Days Qty: 24 RF: 0 Continue PNV [id number]-FA [] 28 mg iron- 800 mcg Tablet 1 tab PO DAILY Referrals: Rubi Jeff MD [Physician] - See Instructions (in 1-2 days) UNKNOWN, [Primary Care Provider] - See Instructions - Discharge Instructions Patient Printed Instructions: (DC) - Post Discharge Care Plan Care Plan Goals: Discharge Care Plan Goals After Section Congratulations on your new baby! We want your recovery to be chaudhary and trouble free. You had a section, or . During the , your baby was delivered through an incision in your abdomen and uterus. Full recovery after a can take time. Its important to take care of yourself for your own sake and because your new baby needs you. Here are some guidelines to follow at home. Incision care: Here's how to take care of your incision: * Shower as needed. Pat your incision dry. * Watch your incision for signs of infection, like more redness or drainage. * Hold a pillow against the incision when you laugh or cough and when you get up from a lying or sitting position. * Remember, it can take as long as 6 weeks for your incision to heal. Diet and Activity: Here are some suggestions: * Dont try to take care of anyone other than your baby and yourself. * Remember, the more active you are, the more likely you are to have an increase in your bleeding. * Get lots of rest. Take naps when the infant is napping. * Increase your activities bit by bit. * Plan your activities so that you dont have to go up or down stairs more than needed. * Do postsurgical deep breathing and coughing exercises. Follow your physician' s instructions. * Dont lift anything heavier than your baby until your physician tells you it s OK. * Dont drive when you are on pain medications. * Dont have sexual intercourse until after youve had a checkup with your physician and you have decided on a control method. * Allow others to do things for you. Don't hesitate to ask for help. If you are : * Ask before you take any medicine. * If you leak milk, it will help to nurse right before the activity. * Talk to your healthcare provider about alcohol, if you choose to drink. * When youre sick, check with your physician if the medications would impact the breast feeding * Ask your physician before taking any prescription or over-the- counter medicines, herbs, or supplements. * Ask your physician what to use for prevention while you are nursing. Balancing the Blues: Recognize your need to talk, to feel protected, to have private time. Allow yourself to cry, to sit, to think. Ask for help when you need it, and accept help when its offered. Knowing your needs is not a weakness. Share your thoughts with your partner. Or milk pickup driver the phone and call a friend, your mother , a sister, or an aunt. Rest, eat right, and get some light exercise. The mind feels best when the body feels good. When to Call your Physician: * Fever of 100.5F or higher. * Redness, pain, or drainage at your incision site * Bleeding that requires a new sanitary pad every hour * Severe pain in the abdomen * Pain or urgency with urination * Foul odor from vaginal discharge * Trouble urinating or emptying your bladder * No bowel movement within 1 week after the of your baby * Swollen, red, painful area in the calf/leg * Appearance of rash or hives * Sore, red, painful area on the breasts that may come with flu-like symptoms * Feelings of anxiety, panic, and/or depression Signs of Depression include: You dont want to be with the baby. Your symptoms are not getting better, and youre getting more upset. You have no interest in eating or are not able to sleep. You think you may harm yourself or the baby. The Depression After Delivery hotline (327-077-5266) may also be helpful. Follow-Up: * Keep your appointments as scheduled. * If your symptoms worsen call your OB Physician, or go to an Urgent Care Center or Emergency Room. * Smoking is Dangerous to your health. Avoid second hand smoke. * Call the 24-hour crisis hotline for domestic abuse at Call 911: Call 911 right away if you have: * Sudden onset of chest pain that is not relieved by medications. * Shortness of breath * Severe Depression /Thoughts of harm to self and others
[2018-12-27 15:44] VITALS: BP 110/69
[2018-12-27 15:45] VITALS: PULSE 80; RESP 16; TEMP 98.1
== END 2018-12-27 15:10 | disposition home or self-care (01) | DRG 788 ==
LOC: H2E 05:22 → H1EA 09:47
PROVIDERS: ADMIT Obstetrics & Gynecology; ATTEND Obstetrics & Gynecology
CPT/HCPCS: 81001; 85025; 86850; 86900; 86901; 90715; J0131; J0690; J0780; J1100; J1885; J2274; J2370; J2405; J2590; J7120